=== PATIENT | male | born 1970 | race Caucasian/White ===

== ENCOUNTER 2021-07-17 12:19 | Day surgery (SDC) | payer OTHER ==
[2021-07-13 13:05] VITALS: BMI 31.4
[~2021-07-17 12:19] MED LIST: PROPOFOL 20 ML ONE; TRANEXAMIC ACID 1000 MG/10 ML VIAL ONE
[2021-07-17] MEDS ORDERED: VANCOMYCIN 1,000 MG VIAL (RESTRICTED TO ID ONLY) ONE (13:10)
[2021-07-17] MEDS ORDERED: MIDAZOLAM HCL 2 MG/2 ML SINGLE DOSE VIAL ONE (13:19)
[2021-07-17] MEDS ORDERED: BUPIVACAINE HCL/EPINEPHRINE/PF 30 ML VIAL IJ ONE (13:59)
[2021-07-17] MEDS ORDERED: BUPIVACAINE LIPOSOME/PF (EXPAREL) 266 MG/20 ML VIAL ONE (14:00)
[2021-07-17] MEDS ORDERED: BUPIVACAINE HCL/PF 0.5% (5 MG/ML) 30 ML VIAL IJ ONE (14:04)
[2021-07-17] MEDS ORDERED: PROPOFOL 20 ML ONE ×3 (14:41→17:16)
[2021-07-17] MEDS ORDERED: ceFAZolin SODIUM 1 GM VIAL ONE (15:19)
[2021-07-17] MEDS ORDERED: BUPIVICAINE 0.25%/MORPH PF/KETOROLAC - 51ML DISP.SYRINGE IA ONE (15:53)
[2021-07-17] MEDS ORDERED: LACTATED RINGERS SOLUTION 1,000 ML IV SCH (18:45)
[2021-07-17] MEDS ORDERED: PROMETHAZINE HCL 25 MG/1 ML VIAL IVPUSH PRN (18:45)
[2021-07-17] MEDS ORDERED: oxyCODONE HCL 5 MG TABLET PO PRN ×2 (18:45)
[2021-07-17] MEDS ORDERED: ONDANSETRON 4 MG/2 ML VIAL IVPUSH PRN (18:45)
[2021-07-17] MEDS ORDERED: ACETAMINOPHEN 325 MG TABLET (FP) PO PRN (18:45)
[2021-07-18] MEDS ORDERED: ONDANSETRON 4 MG/2 ML VIAL IVPUSH PRN (07:05)
[2021-07-18] MEDS ORDERED: CEFAZOLIN 2 GM/D5W 2 GM/50 ML ML IVPB SCH (07:05)
[2021-07-18] MEDS ORDERED: MAG HYDROX/AL HYDROX/SIMETH 30 ML UNIT-DOSE CUP PO PRN (07:05)
[2021-07-18] MEDS ORDERED: VANCOMYCIN 1 GM in D5W (PRE-DOCKED) 1,000 MG/250 ML IVPB ONE (07:07)
[2021-07-18] MEDS ORDERED: LACTATED RINGERS SOLUTION 1,000 ML IV SCH (07:15)
[2021-07-18] MEDS ORDERED: VANCOMYCIN 1 GRAM (PRE-DOCKED) 1,000 MG/250 ML BAG IVPB ONE (07:30)
[2021-07-18] MEDS ORDERED: KETOROLAC TROMETHAMINE 30 MG/1 ML VIAL IVPUSH ONE (08:23)
[2021-07-18] MEDS ORDERED: morphine SULFATE 4 MG/ML VIAL IVPUSH PRN (08:25)
[2021-07-18] MEDS ORDERED: CYCLOBENZAPRINE HCL 5 MG TABLET PO PRN (08:26)
[2021-07-18] MEDS: ACETAMINOPHEN 500 MG TABLET (FP) PO SCH ×3 (08:53→19:47)
[2021-07-18] MEDS: ASPIRIN 325 MG TABLET PO SCH ×2 (09:01→21:33)
[2021-07-18] MEDS: SENNOSIDES/DOCUSATE COMBO (SENNA PLUS) TABLET (UD) PO SCH ×2 (09:02→21:35)
[2021-07-18] MEDS: MULTIVITAMINS (DAILY MVI) TABLET (FP) PO SCH (09:02)
[2021-07-18] MEDS: GABAPENTIN 300 MG CAPSULE PO SCH ×2 (09:02→21:34)
[2021-07-18] MEDS: PANTOPRAZOLE 40 MG TABLET PO SCH (09:03)
[2021-07-18] MEDS: oxyCODONE HCL 10 MG SUSTAINED ACTING TABLET PO SCH ×2 (10:49→21:34)
[2021-07-18] MEDS ORDERED: KETOROLAC TROMETHAMINE 30 MG/1 ML VIAL IVPUSH PRN (14:00)
[2021-07-18] MEDS: CEFAZOLIN 2 GM/D5W 2 GM/50 ML ML IVPB SCH ×2 (15:06→23:55)
[2021-07-18] MEDS: risperiDONE 1 MG TABLET PO SCH ×2 (21:35→21:40)
[2021-07-18] MEDS ORDERED: lamoTRIgine 100 MG TABLET PO SCH (22:00)
[2021-07-19] MEDS: ACETAMINOPHEN 500 MG TABLET (FP) PO SCH ×2 (02:31→10:01)
[2021-07-19 08:13] LABS: HEMATOCRIT 33.4 % (35.4-49); HEMOGLOBIN 10.9 GM/dl (11.7-16.9); MCH 25.8 pg (25.7-33.7); MCHC 32.5 g/dl (32.0-35.9); MEAN CELL VOLUME 79.3 fl (80-96); MEAN PLT VOLUME 8.4 fl (7.5-11.1); PLATELET COUNT 117 10^3/uL (134-434); RBC 4.22 M/mm3 (4.00-5.60); RDW 14.4 % (11.9-15.9); WHITE BLOOD COUNT 4.4 K/mm3 (4.0-10.8)
[2021-07-19 08:23] LABS: CALCIUM 8.6 mg/dl (8.5-10); CREATININE 0.8 mg/dl (0.55-1.3)
[2021-07-19] MEDS: ASPIRIN 325 MG TABLET PO SCH (09:58)
[2021-07-19] MEDS: PANTOPRAZOLE 40 MG TABLET PO SCH (09:59)
[2021-07-19] MEDS: GABAPENTIN 300 MG CAPSULE PO SCH (09:59)
[2021-07-19] MEDS ORDERED: FLUoxetine HCL 20 MG CAPSULE PO SCH (10:00)
[2021-07-19] MEDS: SENNOSIDES/DOCUSATE COMBO (SENNA PLUS) TABLET (UD) PO SCH (10:00)
[2021-07-19] MEDS: oxyCODONE HCL 10 MG SUSTAINED ACTING TABLET PO SCH (10:00)
[2021-07-19] MEDS: MULTIVITAMINS (DAILY MVI) TABLET (FP) PO SCH (10:00)
[2021-07-19 10:18] VITALS: BP 116/55; PULSE 62; TEMP 98.9
== END 2021-07-19 14:47 | disposition home or self-care (01) ==
LOC: FASUSAT 12:19 → SUATTDRO 12:19 → FM/S 12:19 → FASUSAT 07-19 14:47
PROVIDERS: ATTEND Nurse Practitioner Acute Care
PROC: 8E0YXBZ Computer Assisted Procedure of Lower Extremity (ICD-10-PCS; 2021-07-17)
PROC: 8E0Y0CZ Robotic Assisted Procedure of Lower Extremity, Open Approach (ICD-10-PCS; 2021-07-17)
PROC: 0SRC0L9 Replacement of Right Knee Joint with Medial Unicondylar Synthetic Substitute, Cemented, Open Approach (ICD-10-PCS; principal; 2021-07-17 15:45)
DX: M17.11 Unilateral primary osteoarthritis, right knee (principal)
CPT/HCPCS: 20985; 27446; C1776; S2900; 36415; 73560-TC-RT-FY; 80048; 85027; 94760; 97010-GP; 97116-GP; 97162-GP; J2794